=== PATIENT | female | born 1950 | race Caucasian/White ===

== ENCOUNTER 2017-10-23 10:07 | Observation (INO) | payer OTHER, MEDICARE ==
--- NOTE | 2017-10-23 10:27 | CPEKG ---
Heart Rate: 93 RR Interval: 645 P-R Interval: 156 QRSD Interval: 86 QT Interval: 372 QTC Interval: 463 P [place]: 60 QRS [place]: 21 T Wave [place]: 49 EKG Severity - ABNORMAL ECG - EKG Impression: SINUS RHYTHM EKG Impression: LEFT ATRIAL ABNORMALITY EKG Impression: PROBABLE LEFT VENTRICULAR HYPERTROPHY Electronically Signed By: Todd Martínez 23-Oct-2017 12:17:24
[2017-10-23 10:39] LABS: PLATELET COUNT 306 10^3/uL (150-400)
[2017-10-23] MEDS ORDERED: MECLIZINE HCL 25 MG TAB PO ONE (10:55)
--- NOTE | 2017-10-23 11:13 | EDPHY ---
H & P Stated Complaint: dizzyness/room spinning today/stiffness r neck and shoulder - Personal History Current Tetanus/Diphtheria Vaccine: Yes - Medical/Surgical History Hx Asthma: No Hx Chronic Respiratory Disease: No Hx Diabetes: No Hx Cardiac Disease: No Hx Renal Disease: No Hx Cirrhosis: No Hx Alcoholism: No Hx HIV/AIDS: No Hx Splenectomy or Spleen Trauma: No Other PMH: bunionectomy - Social History Smoking Status: Never smoked Time Seen by Provider: 10/23/17 10:19 HPI/ROS: CHIEF COMPLAINT: "I feel like I am going to pass out" HISTORY OF PRESENT ILLNESS: 67-year-old female arrives via private vehicle stating that when she woke this morning she was feeling well when she is lying in bed however when she sat up she felt immediate lightheadedness and dizziness. She describes it as partially feeling like the room is spinning but overall that she was having near syncopal episode. She also notes a mild right trapezius discomfort worse with movement of the head. Patient has been completing a "Anamaria cleanse" recently which consists of ingestion of multiple supplements as well as frequent ingestion of baking soda and lemon tea. No trauma. No chest pain. No dyspnea. No syncope. No headache. No neck manipulation or trauma. No head manipulation or trauma. She exercises regularly. She walks 4 miles yesterday and did not experience dizziness, chest pain, dyspnea out of proportion to her exercise. PRIMARY CARE PROVIDER:None REVIEW OF SYSTEMS: A ten point review of systems was performed and is negative with the exception of the items mentioned in the HPI PAST MEDICAL & SURGICAL HISTORY: No history of coronary artery disease. Exercises regularly SOCIAL HISTORY: Nonsmoker no drug use PHYSICAL EXAM (Prior to examination, patient consented to physical exam, hands were washed and my usual and customary physical exam procedures followed) 1) GENERAL: Well-developed, well-nourished, alert and oriented. Appears to be in no acute distress. 2) HEAD: Normocephalic, atraumatic 3) HEENT: Pupils equal, round, reactive to light bilaterally. Sclera anicteric. Nasopharynx, oropharynx, clear, no lesions. Ears bilaterally with normal tympanic membranes. 4) NECK: Full range of motion, no meningeal signs. 5) LUNGS: Clear auscultation bilaterally, no wheezes, no rhonchi, no retractions. 6) HEART: Regular rate and rhythm, no murmur, no heave, no gallop. 7) ABDOMEN: No guarding, no rebound, no focal tenderness, negative McBurney's, negative Brooks's, negative Rovsing's, negative peritoneal sign, 8) MUSCULOSKELETAL: Moving all extremities, no focal areas of tenderness, no obvious trauma. No peripheral edema or discoloration. 9) BACK: No CVA tenderness, no midline vertebral tenderness, no fluctuance, no step-off, no obvious trauma, no visual or palpable abnormality. 10) SKIN: No rash, no petechiae. 11) Psychiatric: Patient is oriented X 3, there is no agitation. 12) NEURO: Awake, alert, and oriented to person, place and time. Answers questions appropriately. There were no obvious focal neurologic abnormalities. No cerebellar dysfunction. Cranial nerves 2 through to 12 intact. Normal steady gait. Upper and lower extremities bilaterally with strength 5 / 5, reflexes 2+. DIFFERENTIAL DIAGNOSIS: In no particular order including but not limited to cardiac etiology, CVA, vasculopathy (Lennie,Khadar Marylu) Constitutional: Initial Vital Signs Temperature (C) 36.5 C 10/23/17 10:10 Heart Rate 93 10/23/17 10:10 Respiratory Rate 18 10/23/17 10:10 Blood Pressure 187/126 H 10/23/17 10:10 O2 Sat (%) 96 10/23/17 10:10 O2 Delivery Mode Room Air Allergies/Adverse Reactions: Sulfa (Sulfonamide Antibiotics) Allergy (Verified 10/23/17 10:10) Home Medications: Medication Instructions Recorded Herbals/Supplements -Info Only 1 ea PO DAILY 10/23/17 Medical Decision Making - Diagnostics Imaging Results: Imaging Impressions Chest X-Ray 10/23/17 10:50 Impression: No evidence of acute cardiopulmonary abnormality. ED Course/Re-evaluation: I evaluated and discussed this case with Yemi. I evaluated the patient. I am I am comfortable with the plan. She does need admission. She is hyponatremic and hypochloremic and symptomatic. This is most likely due to her recent cleanse (Todd Martínez) Discussed the case with secondary supervising physician Dr. Todd Martínez in the ER. The patient has been re-evaluated with serial examinations most recently at 11:50 a.m.. Discussed her hyponatremia, more than likely related to her recent dietary changes and "Anamaria cleanse". Plan will be admission to hospital. Consultation with hospitalist Dr. Sandoval Haider at 11:59 a.m., admit to Dr. Martinez. (Khadar Hogue Marylu) - Data Points Laboratory Results: Laboratory Results 10/23/17 10:30 10/23/17 10:30 10/23/17 10/23/17 10:30 10:30 WBC 5.66 10^3/uL 10^3/uL (3.80-9.50) RBC 4.47 10^6/uL 10^6/uL (4.18-5.33) Hgb 14.5 g/dL g/dL (12.6-16.3) Hct 40.3 % % (38.0-47.0) MCV 90.2 fL fL (81.5-99.8) MCH 32.4 pg pg (27.9-34.1) MCHC 36.0 g/dL g/dL (32.4-36.7) RDW 12.5 % % (11.5-15.2) Plt Count 306 10^3/uL 10^3/uL (150-400) MPV 8.7 fL fL (8.7-11.7) Neut % (Auto) 72.4 % % (39.3-74.2) Lymph % (Auto) 17.3 % % (15.0-45.0) Schley % (Auto) 8.0 % % (4.5-13.0) Eos % (Auto) 1.4 % % (0.6-7.6) Baso % (Auto) 0.5 % % (0.3-1.7) Nucleat RBC Rel Count 0.0 % % (0.0-0.2) Absolute Neuts (auto) 4.10 10^3/uL 10^3/uL (1.70-6.50) Absolute Lymphs (auto) 0.98 10^3/uL L 10^3/uL (1.00-3.00) Absolute Monos (auto) 0.45 10^3/uL 10^3/uL (0.30-0.80) Absolute Eos (auto) 0.08 10^3/uL 10^3/uL (0.03-0.40) Absolute Basos (auto) 0.03 10^3/uL 10^3/uL (0.02-0.10) Absolute Nucleated RBC 0.00 10^3/uL 10^3/uL (0-0.01) Immature Gran % 0.4 % % (0.0-1.1) Immature Gran # 0.02 10^3/uL 10^3/uL (0.00-0.10) Sodium 127 mEq/L L mEq/L (135-145) Potassium 4.3 mEq/L mEq/L (3.5-5.2) Chloride 88 mEq/L L mEq/L (97-110) Carbon Dioxide 26 mEq/l mEq/l (22-31) Anion Gap 13 mEq/L mEq/L (8-16) BUN 13 mg/dL mg/dL (7-23) Creatinine 0.4 mg/dL L mg/dL (0.6-1.0) Estimated GFR > 60 Glucose 117 mg/dL H mg/dL (70-100) Calcium 9.4 mg/dL mg/dL (8.5-10.4) Troponin I < 0.012 ng/mL ng/mL (0.000-0.034) Medications Given: Sodium Chloride (Ns) 1,000 mls @ 75 mls/hr IV CONT MILENA Stop: 04/21/18 14:29 Last Admin: 10/23/17 14:48 Dose: 1,000 mls Lisinopril (Zestril) 5 mg PO DAILY MILENA Stop: 04/21/18 14:29 Last Admin: 10/23/17 14:48 Dose: 5 mg Discontinued Medications Meclizine HCl (Meclizine Hcl) 25 mg PO EDNOW ONE Stop: 10/23/17 10:56 Last Admin: 10/23/17 11:07 Dose: 25 mg Departure - Departure Disposition: [facility] Acute Clinical Impression: Hyponatremia Condition: Fair
[2017-10-23] MEDS ORDERED: ACETAMINOPHEN 325 MG TAB PO PRN (14:29)
[2017-10-23] MEDS ORDERED: ONDANSETRON DISINTEGRATING 4 MG TAB PO PRN (14:29)
[2017-10-23] MEDS ORDERED: ONDANSETRON 4 MG/2 ML VIAL IVP PRN (14:29)
[2017-10-23] MEDS ORDERED: NS 1,000 ML IV SCH (14:30)
[2017-10-23] MEDS: LISINOPRIL 5 MG TAB PO SCH (14:48)
--- NOTE | 2017-10-23 15:52 | ASMTCMCOM ---
CM Note CM Note Notes: Chart reviewed. 67 year old female admitted via ED for near syncope and found to by hyponatremic. She has under gone a cleanse. Normally lives independent, no needs identified. CM available should needs arise. Date Signed: 10/23/2017 03:51 PM Electronically Signed By:Tara Alfonso RN
[2017-10-24 04:40] LABS: PLATELET COUNT 242 10^3/uL (150-400)
[2017-10-24] MEDS: LISINOPRIL 5 MG TAB PO SCH (08:33)
[2017-10-24 11:14] VITALS: RESP 18
[2017-10-24 15:03] VITALS: BP 154/89; PULSE 70; TEMP 97.9; O2SAT 95
== END 2017-10-24 15:56 | disposition home or self-care (01) ==
LOC: F1N 13:53
PROVIDERS: ADMIT Family Medicine; ATTEND Internal Medicine
DX: E87.1 Hypo-osmolality and hyponatremia (principal); R42 Dizziness and giddiness; E87.8 Other disorders of electrolyte and fluid balance, not elsewhere classified; Z88.2 Allergy status to sulfonamides
CPT/HCPCS: 71046; 93005; G0378